=== PATIENT | male | born 1985 | race Hispanic/Latino ===

== ENCOUNTER 2020-09-24 01:17 | Emergency (ER) | payer SELFPAY ==
[2020-09-24] MEDS ORDERED: ASPIRIN 325 MG TAB PO ONE (01:27)
[2020-09-24 01:57] LABS: Basophils % (Auto) 0.6 % (0.0-1.8); Eosinophils # (Auto) 0.1 K/mm3 (0.0-0.4); Lymphocytes # (Auto) 2.2 K/mm3 (1.2-5.4); Lymphocytes % (Auto) 37.6 % (13.4-35.0); Mean Corpuscular HGB Conc 37 % (32-34); Mean Corpuscular Volume 88 fl (84-94); Monocytes # (Auto) 0.6 K/mm3 (0.0-0.8); Monocytes % (Auto) 9.9 % (0.0-7.3); Platelet Count 232 K/mm3 (140-440); Red Blood Count 4.95 M/mm3 (3.65-5.03); Red Cell Distribution Width 12.5 % (13.2-15.2)
--- NOTE | 2020-09-24 01:58 | XRay Report ---
CHEST 2 VIEWS INDICATION: chest pain. COMPARISON: None. FINDINGS: Support devices: None. Heart: Within normal limits. Lungs/Pleura: No acute air space or interstitial disease. No significant pleural effusion. IMPRESSION: No acute findings. Signer Name: Jose Alicea MD Signed: 09/24/2020 1:54 AM Workstation Name: [id number]
--- NOTE | 2020-09-24 02:06 | Emergency Department Report ---
ED Chest Pain HPI - General Chief Complaint: Chest Pain Stated Complaint: CHEST PAIN PUI?: No Time Seen by Provider: 09/24/20 02:01 Source: patient Mode of arrival: Ambulatory Limitations: No Limitations - History of Present Illness Initial Comments: Patient is a 34-year-old male who presents emergency room with complaints of ch est pain and shortness of breath. Patient states symptoms been going on for 45 minutes. Patient states his symptoms are worsening. Patient states the chest pain is in the left chest. Patient states is nonradiating. Patient states his chest pain and shortness of breath are better with rest and worse with exertion. Patient states he has been under a lot of stress. Patient states he has a past medical history of only insomnia secondary to overthinking things when he is time to go to bed. Patient denies other past medical history. Patient denies fever and chills. Patient denies cough. Patient denies nausea vomiting. Patient denies recent travel. Patient denies recent international travel. Patient denies exposure to the novel coronavirus. Patient denies sick contacts. Patient denies fever and chills. Patient denies cough. Patient denies diarrhea. Patient denies coming in contact with anybody with symptoms of the novel coronavirus. MD Complaint: chest pain -: Sudden, minutes(s) Onset: during rest Pain Location: left chest Pain Radiation: none Severity: severe Severity scale (0 -10): 7 Quality: sharp Consistency: constant Improves With: rest Worsens With: exertion re: dyspnea. denies: nausea, vomting, diaphoresis, sense of impending doom Other Symptoms: denies: cough, fever, syncope, rash, acid taste in mouth, leg swelling, palpitations, burping Treatments Prior to Arrival: none Aspirin use within the Past 7 Days: (0) No - Related Data On Oral Contraceptives: No Allergies Allergy/AdvReac Type Severity Reaction Status Date / Time No Known Allergies Allergy Unverified 09/24/20 01:21 Heart Score - HEART Score History: Slightly suspicious EKG: Normal Age: < 45 Risk factors: No known risk factors Troponin: < normal limit HEART Score: 0 - EKG Read Time Time EKG Completed: 01:21 EKG Read Time: 01:26 ED Review of Systems ROS: Stated complaint: CHEST PAIN Other details as noted in HPI Constitutional: denies: chills, fever Eyes: denies: eye pain, eye discharge, vision change ENT: denies: ear pain, throat pain Respiratory: see HPI, shortness of breath. denies: cough, wheezing Cardiovascular: as per HPI, chest pain. denies: palpitations Endocrine: no symptoms reported Gastrointestinal: denies: abdominal pain, nausea, diarrhea Genitourinary: denies: urgency, dysuria Musculoskeletal: denies: back pain, joint swelling, arthralgia Skin: denies: rash, lesions Neurological: denies: headache, weakness, paresthesias Psychiatric: as per HPI, anxiety. denies: depression Hematological/Lymphatic: denies: easy bleeding, easy bruising ED Past Medical Hx - Past Medical History Previous Medical History?: Yes Additional medical history: Insomnia - Surgical History Past Surgical History?: No - Family History Family history: no significant - Social History Smoking Status: Never Smoker Substance Use Type: None ED Physical Exam - General Limitations: No Limitations General appearance: alert, in no apparent distress - Head Head exam: Present: atraumatic, normocephalic - Eye Eye exam: Present: normal appearance - ENT ENT exam: Present: mucous membranes moist - Neck Neck exam: Present: normal inspection - Respiratory Respiratory exam: Present: normal lung sounds bilaterally. Absent: respiratory distress - Cardiovascular Cardiovascular Exam: Present: regular rate, normal rhythm. Absent: systolic murmur, diastolic murmur, rubs, gallop - GI/Abdominal GI/Abdominal exam: Present: soft, normal bowel sounds - Rectal Rectal exam: Present: deferred - Extremities Exam Extremities exam: Present: normal inspection - Back Exam Back exam: Present: normal inspection - Neurological Exam Neurological exam: Present: alert, oriented X3 - Psychiatric Psychiatric exam: Present: anxious - Skin Skin exam: Present: warm, dry, intact, normal color. Absent: rash ED Course Vital Signs 09/24/20 09/24/20 09/24/20 01:26 02:01 02:31 Temperature 97.3 F L Pulse Rate 90 81 70 Respiratory 20 11 L 11 L Rate Blood Pressure 134/94 131/85 122/73 Blood Pressure 139/94 [Right] O2 Sat by Pulse 100 97 96 Oximetry 09/24/20 09/24/20 03:01 03:31 Temperature Pulse Rate 86 65 Respiratory 14 17 Rate Blood Pressure 129/77 122/63 Blood Pressure [Right] O2 Sat by Pulse 96 98 Oximetry - Reevaluation(s) Reevaluation #1: Patient states he is relaxed. Patient states he feels a little better. Patient states his chest pain shortness of breath have resolved. I discussed all results and clinical findings with patient. I discussed plan of care with patient. Patient agrees with plan of care. Patient is stable for discharge. Patient will be discharged home. Patient given discharge instructions. Patient voiced understanding of discharge instructions. 09/24/20 05:46 SHARONDA score - Sharonda Score Age > 65: (0) No Aspirin use within the Past 7 Days: (0) No 3 or more CAD Risk Factors: (0) No 2 or more Angina events in past 24 hrs: (0) No Known CAD with more than 50% Stenosis: (0) No Elevated Cardiac Markers: (0) No ST Deviation Greater than 0.5mm: (0) No SHARONDA Score: 0 ED Medical Decision Making - Lab Data Result diagrams: 09/24/20 01:37 09/24/20 01:37 - EKG Data -: EKG Interpreted by Me EKG shows normal: sinus rhythm, axis, intervals, QRS complexes, ST-T waves Rate: normal - Radiology Data Radiology results: report reviewed, image reviewed interpreted by me: Chest x-ray: No pneumonia, no pneumothorax, no foreign body, no osseous findings, no acute findings CHEST 2 VIEWS INDICATION: chest pain. COMPARISON: None. FINDINGS: Support devices: None. Heart: Within normal limits. Lungs/Pleura: No acute air space or interstitial disease. No significant pleural effusion. IMPRESSION: No acute findings. - Medical Decision Making Patient is a 34-year-old male who presents emergency room with complaints of ch est pain, nervousness and shortness of breath. Patient had labs done. Patient's labs essentially unremarkable. Patient had 2 sets of cardiac enzymes. Patient had an EKG which was negative for acute findings. Patient chest x-ray was done. Patient is chest x-ray is negative for acute findings. I personally reviewed the chest x-ray and EKG. Patient is stable for discharge. Patient's clinical findings are consistent with anxiety. Even though the patient is low risk and does not require inpatient or further emergency medical services, the patient information will be faxed over to a local cooling tower technician for further evaluation treatment and risk ratification. - Differential Diagnosis Anxiety, chest pain, chest wall pain, shortness of breath Critical care attestation.: If time is entered above; I have spent that time in minutes in the direct care of this critically ill patient, excluding procedure time. ED Disposition Clinical Impression: Panic attack, Shortness of breath, Anxiety Chest pain Qualifiers: Chest pain type: unspecified Qualified Code(s): R07.9 - Chest pain, unspecified Disposition: - TO HOME OR SELFCARE Is pt being admited?: No Does the pt Need Aspirin: No Condition: Stable Instructions: Panic Attack, [id number], Nonspecific Chest Pain, Adult, Shortness of Breath, Adult, Managing Anxiety, Adult Additional Instructions: Patient to follow-up with primary care in 2 to 3 days. Patient to follow-up with cardiology in 2 to 3 days. Patient to rest. Patient to increase water. Patient to avoid strenuous exercise or heavy lifting until cleared by cardiology and primary care. Patient to take Tylenol or ibuprofen as needed for pain. Patient to return to the ER if condition worsens, changes or new symptoms arise. Referrals: PRIMARY MD ALEXEY [Primary Care Provider] - 2-3 Days JULY MILES MD [Staff Physician] - 2-3 Days Time of Disposition: 05:50
[2020-09-24 02:12] LABS: Hematocrit 43.4 % (35.5-45.6)
[2020-09-24 02:17] LABS: Alanine Aminotransferase 13 units/L (7-56); Albumin 4.8 g/dL (3.9-5); Blood Urea Nitrogen 18 mg/dL (9-20); Calcium 9.3 mg/dL (8.4-10.2); Hemolysis Index 3
[2020-09-24 02:24] LABS: BUN/Creatinine Ratio 26
[2020-09-24 06:40] VITALS: BP 109/70
--- NOTE | 2020-09-28 17:26 | Electrocardiograph Report ---
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
== END 2020-09-24 06:12 | disposition home or self-care (01) ==
LOC: ED 01:17
DX: F41.0 Panic disorder [episodic paroxysmal anxiety] (principal); R06.02 Shortness of breath; R07.9 Chest pain, unspecified
CPT/HCPCS: 36415; 71046; 80053; 84484; 85025; 93005